=== PATIENT | female | born 1955 | race Caucasian/White ===

== ENCOUNTER 2019-09-02 12:21 | Emergency (ER) | payer MEDICAID, MEDICARE, OTHER ==
[~2019-09-02] VITALS: Ht 157.5 cm; Wt 67.4 kg
--- NOTE | 2019-09-02 12:51 | NUR ---
PATIENT BROUGHT BACK FROM TRIAGE WITH CHIEF COMPLAINT OF LEFT POSTERIOR KNEE/CALF PAIN. PATIENT IS ALERT, ORIENTED, WARM, & DRY.
--- NOTE | 2019-09-02 12:52 | NUR ---
CMS INTACT X4 EXTREMITITES. DENIES CP, SOB, N/V
[2019-09-02] MEDS ORDERED: ACETAMINOPHEN 500 MG TABLET PO ONE (13:00)
[2019-09-02] MEDS ORDERED: ACETAMINOPHEN 500 MG TABLET ONE (13:02)
--- NOTE | 2019-09-02 13:43 | NUR ---
ULTRASOUND AT BEDSIDE
[2019-09-02 14:02] VITALS: BP 158/62
--- NOTE | 2019-09-02 14:22 | NUR ---
STEADY AMBULATION TO THE BATHROOM.
--- NOTE | 2019-09-02 15:00 | NUR ---
DISCHARGE INSTRUCTIONS REVIEWED
== END 2019-09-02 15:02 | disposition home or self-care (01) ==
LOC: ED 13:22
DX: I82.412 Acute embolism and thrombosis of left femoral vein (principal); M25.562 Pain in left knee
CPT/HCPCS: 99284